=== PATIENT | female | born 1995 | race African-American/Black ===

== ENCOUNTER 2017-11-04 18:11 | Emergency (ER) | payer MEDICAID ==
[~2017-11-04] VITALS: Ht 162.6 cm; Wt 60.0 kg
[2017-11-04] MEDS ORDERED: FAMOTIDINE 20MG/2ML VIAL IV STA (22:07)
[2017-11-04] MEDS ORDERED: SODIUM CHLORIDE 0.9% 1,000 ML IV ONE (22:07)
[2017-11-04 22:58] LABS: BASOPHILS % 0.4 % (0.0-2.0); EOSINOPHILS % 0.9 % (0.0-5.0); HEMATOCRIT. 28.8 % (36.0-48.0); HEMOGLOBIN. 9.2 g/dL (12.0-16.0); LYMPHOCYTES % 9.6 % (20.0-50.0); MEAN CORPUSCULAR HEMOGLOBIN 19.6 pg (28.0-32.0); MEAN CORPUSCULAR VOLUME 61.4 fL (81.0-99.0); MEAN PLATELET VOLUME 8.5 fl (7.4-10.4); MONOCYTES % 4.8 % (2.0-8.0); NEUTROPHILS % 84.3 % (40.0-76.0); PLATELET 250 x1000/uL (130-400); RED BLOOD CELL COUNT 4.69 mill/uL (4.2-5.4); RED CELL DISTRIBUTION WIDTH 22.3 % (11.6-14.6)
[2017-11-04 23:02] LABS: CHLORIDE 107 mEq/L (98-107)
[2017-11-04 23:04] LABS: CLARITY URINE CLEAR (CLEAR); COLOR URINE YELLOW (YELLOW); KETONES URINE 2+ (NEGATIVE); LEUKOCYTE ESTERASE URINE NEGATIVE (NEGATIVE); NITRITE URINE NEGATIVE (NEGATIVE); OCCULT BLOOD URINE NEGATIVE (NEGATIVE); PH URINE >=9.0 (4.5-8.0); PROTEIN URINE TRACE (NEGATIVE); SPECIFIC GRAVITY URINE 1.018 (1.005-1.030); UROBILINOGEN URINE 0.2 E.U./dL (0.2-1.0)
[2017-11-04 23:06] LABS: INR 1.1; PROTHROMBIN TIME 11.9 sec (9.4-11.6)
[2017-11-04 23:07] LABS: CARBON DIOXIDE 24 mEq/L (21-32)
[2017-11-04 23:14] LABS: PLATELET ESTIMATE NORMAL
[2017-11-04] MEDS: KETOROLAC 30MG/ML VIAL IV NR ×2 (23:15→23:23)
[2017-11-04] MEDS: ONDANSETRON HCL 4MG/2ML VIAL IV NR ×2 (23:15→23:23)
[2017-11-05 02:22] VITALS: BP 112/65
== END 2017-11-05 02:25 | disposition home or self-care (01) ==
LOC: ER 18:31
DX: R10.13 Epigastric pain (principal); B35.3 Tinea pedis; E86.0 Dehydration; D64.9 Anemia, unspecified
CPT/HCPCS: 36415; 76705; 80053; 81001; 81025; 83690; 85025; 85610; 96361; 96374; 96375; 99285; J1885; J2405; J3490; J7030; Z7610

== ENCOUNTER 2025-05-18 11:38 | Emergency (ER) | payer MEDICAID ==
[~2025-05-18] VITALS: Ht 167.6 cm; Wt 48.0 kg
[2025-05-18 11:43] VITALS: O2SAT 100
[2025-05-18 11:44] VITALS: BP 132/85; PULSE 77; RESP 16; TEMP 36.9; O2SAT 100
[2025-05-18 13:59] LABS: CLARITY URINE CLEAR (CLEAR); COLOR URINE YELLOW (YELLOW); GLUCOSE URINE NEGATIVE (NEGATIVE); KETONES URINE NEGATIVE (NEGATIVE); LEUKOCYTE ESTERASE URINE NEGATIVE (NEGATIVE); NITRITE URINE NEGATIVE (NEGATIVE); OCCULT BLOOD URINE NEGATIVE (NEGATIVE); PH URINE 8.0 (4.5-8.0); PROTEIN URINE NEGATIVE (NEGATIVE); SPECIFIC GRAVITY URINE 1.026 (1.005-1.030); UROBILINOGEN URINE 1.0 E.U./dL (0.2-1.0)
== END 2025-05-18 13:45 | disposition left against medical advice (07) ==
LOC: ER 11:38
DX: M54.9 Dorsalgia, unspecified (principal); Z53.21 Procedure and treatment not carried out due to patient leaving prior to being seen by health care provider
CPT/HCPCS: 81003; 81025

== ENCOUNTER 2025-07-11 16:02 | Emergency (ER) | payer MEDICAID ==
[~2025-07-11] VITALS: Ht 172.7 cm; Wt 60.0 kg
[2025-07-11 16:05] VITALS: O2SAT 99
[2025-07-11 17:55] LABS: CLARITY URINE CLEAR (CLEAR); COLOR URINE YELLOW (YELLOW); GLUCOSE URINE NEGATIVE (NEGATIVE); KETONES URINE TRACE (NEGATIVE); LEUKOCYTE ESTERASE URINE NEGATIVE (NEGATIVE); NITRITE URINE NEGATIVE (NEGATIVE); OCCULT BLOOD URINE NEGATIVE (NEGATIVE); PH URINE >=9.0 (4.5-8.0); PROTEIN URINE NEGATIVE (NEGATIVE); SPECIFIC GRAVITY URINE 1.015 (1.005-1.030); UROBILINOGEN URINE 0.2 E.U./dL (0.2-1.0)
[2025-07-11 18:12] LABS: *AMPHETAMINES SCREEN URINE NEGATIVE (NEGATIVE); *BARBITURATES SCREEN URINE NEGATIVE (NEGATIVE); *BENZODIAZEPINES SCREEN URINE NEGATIVE (NEGATIVE); *COCAINE SCREEN URINE NEGATIVE (NEGATIVE); CANNABINOID URINE SCREEN NEGATIVE (NEGATIVE); ECSTASY MDMA SCREEN URINE NEGATIVE (NEGATIVE); METHADONE URINE SCREEN NEGATIVE (NEGATIVE); OPIATES URINE SCREEN NEGATIVE (NEGATIVE); PHENCYCLIDINE URINE SCREEN NEGATIVE (NEGATIVE)
[2025-07-11 18:15] LABS: INFLUENZA TYPE A Presumptive Negative (Pres. Neg.); INFLUENZA TYPE B Presumptive Negative (Pres. Neg.)
[2025-07-11 18:16] LABS: RESPIRATORY SYNCYTIAL VIRUS Not Detected (Not Detectd)
[2025-07-11 18:23] LABS: BASOPHILS % 0.4 % (0.0-2.0); EOSINOPHILS % 2.4 % (0.0-5.0); HEMATOCRIT. 27.1 % (36.0-48.0); HEMOGLOBIN. 8.4 g/dL (12.0-16.0); LYMPHOCYTES % 7.4 % (20.0-50.0); MEAN PLATELET VOLUME 8.5 fl (7.4-10.4); MONOCYTES % 9.3 % (2.0-8.0); NEUTROPHILS % 80.5 % (40.0-76.0); PLATELET 256 x1000/uL (130-400); RED BLOOD CELL COUNT 4.27 mill/uL (4.2-5.4); RED CELL DISTRIBUTION WIDTH 18.7 % (11.6-14.6)
[2025-07-11 18:24] LABS: ADD RBC MORPHOLOGY YES
[2025-07-11 18:35] LABS: PLATELET ESTIMATE NORMAL
[2025-07-11 18:39] LABS: HCG SCREEN NEGATIVE
[2025-07-11 18:41] LABS: CREATININE 0.9 mg/dL (0.6-1.0); ETHANOL BLOOD < 10 mg/dL (<10); TROPONIN I HIGH SENSITIVITY 4 ng/L (3.0-34); UREA NITROGEN BLOOD 13 mg/dL (9-23)
[2025-07-11 18:43] LABS: ASPARTATE AMINOTRANSFERASE 19 IU/L (<34); BILIRUBIN DIRECT 0.2 mg/dL (<=3.0); BILIRUBIN TOTAL 0.8 mg/dL (0.1-1.0); PROTEIN TOTAL 6.8 g/dL (6.0-8.3)
[2025-07-11] MEDS ORDERED: CLIN-116 MT (18:45)
[2025-07-11] MEDS ORDERED: IRON1CAP3 MT (18:45)
[2025-07-11] MEDS ORDERED: METH4TAB95 MT (18:45)
[2025-07-11] MEDS: KETOROLAC 30MG/ML VIAL IM ONE (18:57)
[2025-07-11] MEDS: LIDOCAINE 5% PATCH TOP SCH (18:57)
[2025-07-11] MEDS: POTASSIUM CHLORIDE 20MEQ TABLET SR PO ONE (18:58)
[2025-07-11 19:36] VITALS: BP 122/76; PULSE 96; RESP 18; TEMP 37.1; O2SAT 99
== END 2025-07-11 19:50 | disposition home or self-care (01) ==
LOC: ER 16:02
DX: B34.9 Viral infection, unspecified (principal); Z79.899 Other long term (current) drug therapy; Z20.822 Contact with and (suspected) exposure to COVID-19; Z88.0 Allergy status to penicillin
CPT/HCPCS: 80076; 80305; 80048; 81003; 80320; 84703; 87430; 83690; 83735; 85025; 87420; 84484; 87070; 87804 ×2; 36415; 96372; 99283; 87426; J1885; G0480